=== PATIENT | male | born 1955 | race Caucasian/White ===

== ENCOUNTER → 2021-04-25 | Outpatient (CLI) | payer MEDICARE | END | disposition home or self-care (01) | LOC: PETCFH 07:29 | PROVIDERS: ATTEND Nurse Practitioner Family | DX: R91.8 Other nonspecific abnormal finding of lung field (principal) | CPT/HCPCS: 78815; A9552 ==

== ENCOUNTER → 2021-04-29 | Outpatient (CLI) | payer MEDICARE | END | disposition home or self-care (01) | LOC: CFH 10:47 | PROVIDERS: ATTEND Internal Medicine | DX: R91.8 Other nonspecific abnormal finding of lung field (principal); J84.9 Interstitial pulmonary disease, unspecified | CPT/HCPCS: 71250 ==

== ENCOUNTER → 2021-05-17 | Outpatient (CLI) | payer MEDICARE ==
[~2021-05-17] MED LIST: ATOR-2 PO; FENO160T PO; MULT-257 PO; OLME40TA12 PO; [UNRECOGNIZED DRUG - OTHER]; coq10 PO
[2021-05-17 11:07] LABS: ALANINE AMINOTRANSFERASE 40 U/L (12-78); ALBUMIN 4.1 g/dL (3.4-5.0); ANION GAP 4 mmol/L (5-15); CALCIUM 9.3 mg/dL (8.5-10.1); CHLORIDE 111 mmol/L (98-107); CREATININE 1.22 mg/dL (0.7-1.3)
[2021-05-17 11:09] LABS: ALKALINE PHOSPHATASE 62 U/L (45-117); BILIRUBIN,TOTAL 0.8 mg/dL (0.2-1.0); TOTAL PROTEIN 8.1 g/dL (6.4-8.2)
== END | disposition home or self-care (01) ==
LOC: STAR 09:59
PROVIDERS: ATTEND Internal Medicine
DX: Z01.818 Encounter for other preprocedural examination (principal); R91.8 Other nonspecific abnormal finding of lung field
CPT/HCPCS: 36415; 80053; 93005

== ENCOUNTER 2021-05-24 07:58 | Day surgery (SDC) | payer MEDICARE ==
[~2021-05-24] VITALS: Ht 185.4 cm; Wt 141.1 kg
[2021-05-24 08:58] VITALS: BP 152/97
[2021-05-24] MEDS ORDERED: LACTATED RINGERS 1,000 ML IV SCH (09:00)
[2021-05-24] MEDS ORDERED: CHLORHEXIDINE 15 ML UDC PO ONE (09:00)
[2021-05-24] MEDS ORDERED: FENTANYL PF 100 MCG/2ML ONE (10:38)
[2021-05-24] MEDS ORDERED: ACETAMINOPHEN 325 MG TABLET PO PRN (11:30)
[2021-05-24] MEDS ORDERED: MEPERIDINE/PF 25MG/0.5ML IVPush PRN (11:30)
[2021-05-24] MEDS ORDERED: OXYcodone 5 MG/5 ML ORAL.SOL UDC PO PRN (11:30)
[2021-05-24] MEDS ORDERED: LORazepam 2 MG/ML, 1ML IVPush PRN (11:30)
[2021-05-24] MEDS ORDERED: ONDANSETRON 2MG/ML, 2ML IVPush PRN (11:30)
[2021-05-24] MEDS ORDERED: HYDROmorphone 1 MG/ML, 1ML INJ IVPush PRN (11:30)
[2021-05-24] MEDS ORDERED: PROMETHAZINE 25 MG/ML, 1ML IVPush PRN (11:30)
[2021-05-24] MEDS ORDERED: METHOCARBAMOL 1,000 MG in DEXTROSE 5% 100 ML IV PRN (11:30)
[2021-05-24] MEDS ORDERED: FENTANYL PF 100 MCG/2ML IV PRN (11:30)
[2021-05-24] MEDS ORDERED: hydrALAzine 20 MG/ML, 1ML IV PRN (11:30)
[2021-05-24] MEDS ORDERED: PROMETHAZINE 25 MG SUPP PR PRN (11:30)
[2021-05-24] MEDS ORDERED: METOPROLOL 1 MG/ML, 5ML IV PRN (11:30)
[2021-05-24] MEDS ORDERED: LABETALOL 5MG/ML, 20ML IV PRN (11:30)
[2021-05-24] MEDS ORDERED: ONDANSETRON 2MG/ML, 2ML ONE (11:35)
[2021-05-24] MEDS ORDERED: ROCURONIUM 10MG/ML,5ML ONE (11:35)
[2021-05-24] MEDS ORDERED: SUCCINYLCHOLINE 20 MG/ML, 10ML ONE (11:35)
[2021-05-24] MEDS ORDERED: PROPOFOL 10 MG/ML, 20ML ONE (11:35)
[2021-05-24] MEDS ORDERED: NEOSTIGMINE 1 MG/ML, 10ML ONE (11:35)
[2021-05-24] MEDS ORDERED: CEFAZOLIN 1,000 MG ONE (11:35)
[2021-05-24] MEDS ORDERED: LIDOCAINE-MPF 2% ,5ML ONE ×2 (11:35)
[2021-05-24] MEDS ORDERED: GLYCOPYRROLATE 0.2MG/1ML, 5ML ONE (11:35)
[2021-05-24] MEDS ORDERED: SUGAMMADEX 200 MG/2 ML IVPush ONE (11:35)
== END 2021-05-24 13:00 | disposition home or self-care (01) ==
LOC: OUT 07:58
PROVIDERS: ATTEND Internal Medicine
DX: R91.8 Other nonspecific abnormal finding of lung field (principal); J18.9 Pneumonia, unspecified organism; J32.9 Chronic sinusitis, unspecified; I10 Essential (primary) hypertension; E78.5 Hyperlipidemia, unspecified; E66.01 Morbid (severe) obesity due to excess calories; Z68.41 Body mass index [BMI] 40.0-44.9, adult; Z79.899 Other long term (current) drug therapy; Z87.891 Personal history of nicotine dependence
CPT/HCPCS: 31623; 31624; 31627; 31628; 71045; 87015; 87070; 87102; 87116; 87205; 87206; 88112; 88172; 88173; 88177; 88305; J0690; J2405; J2704; J3010; J7120; 31629; 76000; J2710; J0330